=== PATIENT | male | born 1970 | race Caucasian/White ===

== ENCOUNTER 2017-07-31 22:04 | Inpatient (IN) | payer OTHER ==
[~2017-07-31] VITALS: Ht 182.9 cm; Wt 90.9 kg
[~2017-07-31 22:04] MED LIST: NOHOMEMEDS; PERCOCET 5/31 TABLET PO
[2017-07-31 22:45] LABS: BASOPHIL COUNT 0.1 K/uL (0-0.1); EOSINOPHIL (%) 2.2 % (0-5); EOSINOPHIL COUNT 0.2 K/uL (0-0.3); HEMATOCRIT 46.8 % (38.0-50.0); HEMOGLOBIN 16.1 G/DL (12.5-16.6); IMMATURE GRANULOCYTE (%) 0.1 % (0.0-0.7); LYMPHOCYTE (%) 28.4 % (15-42); MCH 31.8 PG (29.0-34.0); MCHC 34.4 G/DL (30.0-36.0); MCV 92.5 FL (86-99); MONOCYTE (%) 14.8 % (3-12); NEUTROPHIL (%) 53.5 % (45-76); NEUTROPHIL COUNT 3.7 K/uL (1.8-6.4); PLATELET COUNT 311 K/uL (156-360); RBC DIS.WIDTH-CV 13.1 % (11.8-14.6); RBC DIS.WIDTH-SD 44.3 % (39-53); RED BLOOD COUNT 5.06 M/uL (4.00-5.50)
[2017-07-31 23:04] LABS: CHLORIDE 105 MEQ/L (99-109); POTASSIUM 3.6 MEQ/L (3.7-5.4); SODIUM 136 MEQ/L (136-147); TOTAL BILIRUBIN 0.4 MG/DL (0.0-1.0)
[2017-07-31 23:28] LABS: ACETAMINOPHEN (TYLENOL) < 10 MCG/ML (10-30); ALKALINE PHOSPHATASE 67 IU/L (3-129); ALT (GPT) 17 IU/L (3-49); AST (GOT) 16 IU/L (2-34); CREATININE 1.1 MG/DL (0.6-1.3); GFR ESTIMATE (CALCULATED) > 59 mL/min/ (58.99-99999); GLUCOSE 96 mg/dL (70-99); SALICYLATE < 3.0 MG/DL (15-30); SERUM ETHYL ALCOHOL < 10 mg/dL; TOTAL PROTEIN 6.8 G/DL (6.4-8.3); UREA NITROGEN (BUN) 7 mg/dL (9-23)
[2017-08-01 02:31] LABS: AMPHETAMINE NEGATIVE (500 ng/mL); BARBITURATES NEGATIVE (200 ng/mL); BENZODIAZEPINES NEGATIVE (150 ng/mL); BUPRENORPHINE NEGATIVE (10 ng/mL); COCAINE PRESUMPTIVE POSITIVE (150 ng/mL); METHADONE NEGATIVE (200 ng/mL); METHAMPHETAMINE NEGATIVE (500 ng/mL); OPIATES (MORPHINE) NEGATIVE (100 ng/mL); OXYCODONE NEGATIVE (100 ng/mL); PHENCYCLIDINE NEGATIVE (25 ng/mL); PROPOXYPHENE NEGATIVE (300 ng/mL); THC CANNABINOIDS NEGATIVE (50 ng/mL); TRICYCLIC ANTIDEPRESSANTS NEGATIVE (300 ng/mL)
[2017-08-01 07:56] VITALS: BP 134/85
[2017-08-01 15:34] VITALS: BP 116/64
[2017-08-02 07:57] VITALS: BP 137/77
[2017-08-02 16:11] VITALS: BP 116/72
[2017-08-03 08:26] VITALS: BP 114/83
[2017-08-03 16:12] VITALS: BP 132/83
[2017-08-04 08:02] VITALS: BP 112/78
[2017-08-04 15:58] VITALS: BP 98/64
[2017-08-05 07:53] VITALS: BP 121/67
[2017-08-05 15:43] VITALS: BP 105/54
[2017-08-06 08:02] VITALS: BP 125/70
[2017-08-06 16:03] VITALS: BP 121/80
[2017-08-07 08:14] VITALS: BP 128/76
[2017-08-07 16:00] VITALS: BP 145/87
[2017-08-08 08:06] VITALS: BP 142/86
[2017-08-08] MEDS ORDERED: ARIPIPRAZOLE5 MG PO (10:07)
[2017-08-08] MEDS ORDERED: VENLAFAXINE HC150 M1 PO (10:07)
== END 2017-08-08 14:51 | disposition home or self-care (01) | DRG 881 ==
LOC: EME 22:04 → 1WEST 08-01 00:01 → EDOF 08-01 00:01 → 1WEST 08-01 00:01 → ENRESERV 08-01 01:30 → 1WEST 08-01 01:47
PROVIDERS: Emergency Medicine
DX: F32.9 Major depressive disorder, single episode, unspecified (principal); F14.20 Cocaine dependence, uncomplicated; R45.851 Suicidal ideations; F17.200 Nicotine dependence, unspecified, uncomplicated; Z59.0 Homelessness; Z81.8 Family history of other mental and behavioral disorders
CPT/HCPCS: 80053; 84999; 85025; 90839; 97150 GO; 97166 GO; 99281; 99285; G0480